=== PATIENT | male | born 1945 | race Caucasian/White ===

== ENCOUNTER 2017-09-22 10:36 | Emergency (ER) | payer MEDICARE, OTHER ==
[~2017-09-22] VITALS: Ht 182.9 cm; Wt 77.2 kg
[2017-09-22 12:43] VITALS: BP 124/75
== END 2017-09-22 12:44 | disposition home or self-care (01) ==
LOC: ER 10:37
DX: R05 Cough (principal)
CPT/HCPCS: 71046; 99284

== ENCOUNTER 2019-06-20 06:44 | Emergency (ER) | payer MEDICARE ==
[~2019-06-20] VITALS: Ht 182.9 cm; Wt 77.0 kg
[2019-06-20] MEDS ORDERED: CLIN-90 PO (11:13)
[2019-06-20 11:21] VITALS: BP 145/82
== END 2019-06-20 11:31 | disposition home or self-care (01) ==
LOC: ER 06:44
DX: L03.116 Cellulitis of left lower limb (principal); R60.0 Localized edema; Z59.0 Homelessness; Z56.0 Unemployment, unspecified
CPT/HCPCS: 93970; 99284